=== PATIENT | female | born 1970 | race Caucasian/White ===

== ENCOUNTER → 2016-10-09 | Day surgery (SDC) ==
[~2016-10-09] MED LIST: DECADRON ONE; DILAUDID ONE; DIPRIVAN 1% ONE; EPHEDRINE ONE; KEFZOL 2 GM/D5W 50 ML ONE; LR 1,000 ML ONE; PERCOCET-5 ONE; QUELICIN (DOSE) ONE; TORADOL ONE; XYLOCAINE-MPF 2% ONE; ZOFRAN ONE
--- NOTE | 2016-10-09 15:37 | Diag Imaging Result Document ---
PROCEDURE NAME: RENAL STONE SEARCH - 10/09/2016 CT ABDOMEN PELVIS: COMPARISON: 04/01/2016. FINDINGS: The lung bases are clear and the heart size is normal. There is mild fatty change of the liver similar to prior. There are cholecystectomy clips stable from prior. There is no significant hydronephrosis. No radiodense renal stones or ureteral stones. Stable calcification adjacent to the left distal ureter. Urinary bladder and rectum are normal. Uterus is absent. No bowel obstruction or inflammation. Normal appendix. Bony structures are intact. IMPRESSION: No acute disease. No evidence of hydronephrosis. Mild fatty change of the liver.
[2016-10-09 20:08] VITALS: BP 143/74
--- NOTE | 2016-10-10 09:03 | Diag Imaging Result Document ---
PROCEDURE NAME: FLUROSCOPY CYSTO - 10/09/2016 RETROGRADE PYELOGRAM, 18 IMAGES: FINDINGS: There is stent placement on the left by Dr. Gore. The lower portion of the stent is not demonstrated. IMPRESSION: Left ureteral stent placement.
--- NOTE | 2016-10-21 18:13 | OPERATIVE NOTE ---
PROCEDURE DATE: 10/09/2016 SURGEON: Flex Gore MD PREOPERATIVE DIAGNOSIS: 1. Left hydronephrosis. 2. Left flank pain, history of renal scan ureteral stones. PRIMARY PROCEDURES: 1. Cystoscopy. 2. Left diagnostic ureteroscopy. 3. Placement of 6-German-24 cm ureteral stent. INDICATIONS: A 46-year-old female who has a history of recurrent urolithiasis. She presented with severe left flank pain with nausea and vomiting. She had CT scan, which showed 4 mm left distal ureteral stone versus phlebolith. Her pain was not tolerable at the office, in fact, she had vomited while in the office. I discussed with her that she could have a phlebolith and her pain would be related to something else and she wanted to proceed with diagnostic procedure and possible intervention. FINDINGS: She did have left hydroureteronephrosis all the way down to the level of bladder, but I could not visualize with a distal ureteral stone, successful 6-German-24 cm ureteral stent placement. DETAILS OF OPERATION: After obtaining informed consent, patient was brought to the operative room. Perioperative antibiotics and laryngeal mask anesthesia were administered. She was placed in lithotomy position, prepped and draped in sterile fashion. A 21-German rigid cystoscope was used to gain access to the bladder, which was then examined in a systematic fashion. She did not have any evidence of mucosal lesions, excessive trabeculations, or diverticula noted. We turned our attention to the left ureteral orifice which was cannulated with a PTFE wire and advanced to the level of the left renal pelvis. Rigid ureteroscope was introduced alongside of the wire and advanced to the level of ureteropelvic junction. She did have hydroureteronephrosis, but I did not see any evidence of stones in the distal ureter, mucosal lesions, polyps, or strictures. I carefully retrieved this ureteroscope, again visualizing the entire ureteral mucosa. Given her hydroureteronephrosis, we elected to place ureteral stent. In a standard fashion, a 6-German-24 cm stent was placed with proximal position confirmed fluoroscopically and distal coil directly visualized. The string was left attached to the stent. She was extubated and taken to PACU for further recovery. ESTIMATED BLOOD LOSS: None. COMPLICATIONS: None. DISPOSITION: To PACU and subsequently home with prescriptions for [place] 10 (20), ciprofloxacin b.i.d. (#30).
== END | disposition home or self-care (01) ==
LOC: CT 13:03 → OPS 13:04
PROVIDERS: ATTEND Urology
DX: N13.2 Hydronephrosis with renal and ureteral calculous obstruction (principal); I10 Essential (primary) hypertension; E78.00 Pure hypercholesterolemia, unspecified
CPT/HCPCS: 74176; 76000; J0330; J0690; J1100; J1170; J1885; J2405; J7120